=== PATIENT | male | born 1955 | race Caucasian/White ===

== ENCOUNTER 2017-02-20 11:03 | Emergency (ER) | payer BC ==
[2017-02-20 11:16] VITALS: BP 132/84
[2017-02-20] MEDS ORDERED: DOXYcycline CAP(*) 100 MG PO ONE (11:23)
--- NOTE | 2017-02-20 11:49 | UC ---
Skin Complaint HPI - HPI Summary HPI Summary: Pt reports that he was bit by a tick 2 days ago. removed tick this morning and pt brought tick in a zip lock bag. Pt is concerned about exposure to lyme disease - History of Current Complaint Chief Complaint: UCBiteInjury Time Seen by Provider: 02/20/17 11:14 Stated Complaint: TICK BITE Hx Obtained From: Patient Onset/Duration: Sudden Onset, Lasting Days Skin Exposure Onset/Duration: Days Ago Timing: Constant Onset Severity: Mild Current Severity: Mild Location: Discrete - left lower lateral side of back Aggravating: Nothing Alleviating: Nothing Associated Signs & Symptoms: Positive: Negative Related History: Insect Bite/Sting - Allergy/Home Medications Allergies/Adverse Reactions: Allergies Allergy/AdvReac Type Severity Reaction Status Date / Time Penicillins Allergy Itching Verified 02/20/17 11:10 Home Medications: Home Medications NK [No Home Medications Reported] 02/20/17 [History Confirmed 02/20/17] Review of Systems Constitutional: Negative Skin: Other - small, eraser head size reddened area, with darkened center. Eyes: Negative ENT: Negative Respiratory: Negative Cardiovascular: Negative Gastrointestinal: Negative Genitourinary: Negative Motor: Negative Neurovascular: Negative Musculoskeletal: Negative Neurological: Negative Psychological: Negative All Other Systems Reviewed And Are Negative: Yes PMH/Surg Hx/FS Hx/Imm Hx Previously Healthy: Yes - frequent tick bites Endocrine History Of: Denies: Diabetes, Thyroid Disease Cardiovascular History Of: Denies: Cardiac Disorders, Hypertension Respiratory History Of: Reports: COPD Denies: Asthma GI/ History Of: Denies: Ulcer - Surgical History Surgical History: Yes Surgery Procedure, Year, and Place: left lower leg 1989, cspine vertebrae fusion 1989, fx right leg 2008 - Family History Known Family History: Positive: Other - positive for FMH URI - Social History Alcohol Use: Daily Alcohol Amount: recovering alcoholic Substance Use Type: Marijuana Substance Use Comment - Amount & Last Used: stopped 12 days ago Smoking Status (MU): Heavy Every Day Tobacco Smoker Type: Cigarettes Have You Smoked in the Last Year: Yes Household Exposure Type: Cigarettes Physical Exam Triage Information Reviewed: Yes Appearance: Well-Appearing Vital Signs: Initial Vital Signs Temp 98.4 F 02/20/17 11:12 Pulse 65 02/20/17 11:12 Resp 16 02/20/17 11:12 BP 132/84 02/20/17 11:12 Pulse Ox 97 02/20/17 11:12 Eye Exam: Normal Respiratory Exam: Other Respiratory: Positive: No respiratory distress Musculoskeletal Exam: Normal Neurological Exam: Normal Psychological Exam: Normal Skin Exam: Other - insect bite left mid lower back ,medial aspect Course/Dx - Differential Diagnoses - Skin Complaint Differential Diagnoses: Tick Born Illness, Other - insect bite - Diagnoses Provider Diagnoses: tick bite 48 hours. possible lyme exposure Discharge - Discharge Plan Condition: Stable Disposition: HOME Patient Education Materials: Tick Bite (ED) Referrals: Sonja Berumen MD [Primary Care Provider] - If Needed (Please follow up with your PCP or return to clinic as needed. )
== END 2017-02-20 11:40 | disposition home or self-care (01) ==
LOC: UCEAST 11:03
DX: S30.860A Insect bite (nonvenomous) of lower back and pelvis, initial encounter (principal); W57.XXXA Bitten or stung by nonvenomous insect and other nonvenomous arthropods, initial encounter; Y92.9 Unspecified place or not applicable; Z88.0 Allergy status to penicillin; J44.9 Chronic obstructive pulmonary disease, unspecified; Z87.891 Personal history of nicotine dependence
CPT/HCPCS: 99212; A9270-GY; G0463

== ENCOUNTER 2018-04-16 08:09 | Emergency (ER) | payer BC ==
[2018-04-16 08:29] VITALS: BP 138/79
--- NOTE | 2018-04-16 09:21 | UC ---
Stefano Cruz Angela, scribed for Estrada Barnett MD on 04/16/18 at 0825 . General HPI - HPI Summary HPI Summary: This pt is a 63 y/o male presenting to [facility] c/o productive cough for the last 10 days. Pt describes productive cough with yellow/green sputum. He additionally states body aches and generalized weakness. Denies chest pain, SOB , fever. Pt notes his symptoms are worse today and decided to come to the ED. Denies any PMHx. Pt admits to tobacco and alcohol use. - History of Current Complaint Stated Complaint: URI Time Seen by Provider: 04/16/18 08:11 Hx Obtained From: Patient Onset/Duration: Lasting Days, Still Present Timing: Constant Current Severity: Moderate Aggravating: nothing Alleviating: nothing Associated Signs & Symptoms: Positive: Cough, Weakness, Other - POS: body aches. Negative: Chest Pain, Fever, SOB - Allergy/Home Medications Allergies/Adverse Reactions: Allergies Allergy/AdvReac Type Severity Reaction Status Date / Time Penicillins Allergy Itching Verified 04/16/18 08:22 Home Medications: Home Medications Ibuprofen TAB* [Advil TAB*] 2 - 4 tab PO Q8HR PRN 04/16/18 [History Confirmed ] PMH/Surg Hx/FS Hx/Imm Hx Other Endocrine History: DENIES: diabetes Other Cardiovascular History: DENIES: HTN Respiratory History: COPD - Surgical History Surgical History: Yes Surgery Procedure, Year, and Place: left lower leg 1989, cspine vertebrae fusion 1989, fx right leg 2008 - Family History Known Family History: Positive: Other - positive for FHx URI - Social History Alcohol Use: Daily Alcohol Amount: recovering alcoholic Substance Use Type: Marijuana Substance Use Comment - Amount & Last Used: stopped 12 days ago Smoking Status (MU): Heavy Every Day Tobacco Smoker Type: Cigarettes Have You Smoked in the Last Year: Yes Household Exposure Type: Cigarettes Review of Systems Constitutional: Negative Skin: Negative Eyes: Negative ENT: Negative Respiratory: Cough, Other - NEG: SOB Cardiovascular: Negative Gastrointestinal: Negative Genitourinary: Negative Motor: Negative Neurovascular: Negative Musculoskeletal: Myalgia Neurological: Weakness - generalized Psychological: Negative Is Patient Immunocompromised?: No All Other Systems Reviewed And Are Negative: Yes Physical Exam - Summary Physical Exam Summary: VITAL SIGNS: Reviewed. GENERAL: Patient is a well-developed and nourished male who is lying comfortable in the stretcher. Patient is not in any acute respiratory distress. HEAD AND FACE: Normocephalic EYES: PERRLA, EOMI x 2. EARS: Hearing grossly intact. MOUTH: Oropharynx within normal limits. NECK: Supple, trachea is midline, no adenopathy, no JVD, no carotid bruit. CHEST: Symmetric, no tenderness at palpation LUNGS: Clear to auscultation bilaterally. No wheezing or crackles. CVS: Regular rate and rhythm, S1 and S2 present, no murmurs or gallops appreciated. ABDOMEN: Soft, non-tender. Bowel sounds are normal. No abdominal abnormal pulsations. EXTREMITIES: Full ROM in all major joints, no edema, no cyanosis or clubbing. NEURO: Alert and oriented x 3. No acute neurological deficits. Speech is normal and follows commands. SKIN: Dry and warm Triage Information Reviewed: Yes Vital Signs: Initial Vital Signs Temp 97.8 F 04/16/18 08:23 Pulse 86 04/16/18 08:23 Resp 20 04/16/18 08:23 BP 138/79 04/16/18 08:23 Pulse Ox 99 04/16/18 08:23 Vital Signs Reviewed: Yes Diagnostics - Radiology Chest XR Xray Interpretation: No Acute Changes Radiology Interpretation Completed By: ED Physician - No pneumonia., Radiologist Re-Evaluation - Re-Evaluation First Eval Re-Evaluation Time: 09:20 Comment: I reviewed the chest XR with the pt. Pt will be discharged home. Course/Dx - Course Course Of Treatment: Chest x-ray impression: Acute pathology. I believe that the patient has bronchitis however since the patient is having the same symptoms for the last 10 days with a productive cough of yellow phlegm, intermittent fevers, would place the patient in azithromycin. I discussed all the findings and test results with the patient and Patient was instructed to return to the or go to the ED if develops any fever, increase sore throat unable to swallow, drooling, unable to open their mouth, or any other symptoms. The patient understands and agrees. Plan of care was discussed with the patient and understands and agrees. All questions were answered at patient satisfaction. There were no further complaints or concerns. Patient is A + O X 3. hemodynamically stable. - Differential Dx - Multi-Symptom Provider Diagnoses: Bronchitis Discharge - Sign-Out/Discharge Documenting (check all that apply): Discharge/Admit/Transfer - Discharge - Discharge Plan Condition: Stable Disposition: HOME Prescriptions: Azithromyxin DEREK (NF) [Z-Derek (Zithromax) 250 mg tabs #6] 2 tab PO .TODAY, THEN 1 DAILY #6 tab Patient Education Materials: Acute Bronchitis (ED) Referrals: Sonja Berumen MD [Primary Care Provider] - Additional Instructions: FOLLOW UP WITH YOUR PRIMARY CARE PROVIDER WITHIN ONE WEEK FOR HIGH BLOOD PRESSURE NOTED TODAY. RETURN TO URGENT CARE OR THE ED FOR ANY WORSENING OR NEW SYMPTOMS. - Billing Disposition and Condition Condition: STABLE Disposition: HOME The documentation as recorded by the Stefano ingram Angela accurately reflects the service I personally performed and the decisions made by , Estrada Barnett MD.
--- NOTE | 2018-04-16 09:43 | RAD ---
INDICATION: 4 days productive cough. History of COPD. COMPARISON: April 02, 2016 TECHNIQUE: Dual energy PA and routine lateral views of the chest were obtained. REPORT: Elevated lung volumes and rarefaction of interstitial markings. No focal pulmonary lesion, compelling alveolar consolidation, pleural effusion, pneumothorax. Negative for cardiomegaly. Unremarkable central pulmonary vasculature. Moderately tortuous descending thoracic aorta without significant change. Healed RIGHT eighth, ninth, and 10th rib fractures. Healed LEFT ninth rib fracture. Chronic mild T8 and T9 vertebral compression fractures. No acute fracture evident. IMPRESSION: Stigmata of obstructive lung disease. No acute pulmonary or cardiac process evident.
== END 2018-04-16 09:30 | disposition home or self-care (01) ==
LOC: UCEAST 08:09
DX: J40 Bronchitis, not specified as acute or chronic (principal); J44.9 Chronic obstructive pulmonary disease, unspecified; Z88.0 Allergy status to penicillin; F17.210 Nicotine dependence, cigarettes, uncomplicated
CPT/HCPCS: 71046; 99212; G0463